=== PATIENT | female | born 1985 | race Caucasian/White ===

== ENCOUNTER 2019-10-23 15:34 | Emergency (ER) | payer OTHER, SELFPAY ==
[2019-10-23 15:45] VITALS: BP 117/53; PULSE 101; RESP 20; TEMP 36.5; O2SAT 100
--- NOTE | 2019-10-23 16:24 | ED.URI ---
HPI - URI/Sore Throat General Chief Complaint: Upper Respiratory Infection Stated Complaint: fever/achy/cough Time Seen by Provider: 10/23/19 16:20 Source: patient Mode of arrival: ambulatory Limitations: no limitations History of Present Illness HPI Narrative: Angela French is a 34 yo female with no PMH who comes here with a fever, tachycardia, myalgia, loss of appetite, month suddenly and started yesterday Related Data Allergies Allergy/AdvReac Type Severity Reaction Status Date / Time amoxicillin Allergy Severe THROAT Unverified 04/11/15 09:46 SWELLING, HIVES Review of Systems Review of Systems: Narrative: CONSTITUTIONAL: Denies fever, chills, sweats. EYES: Denies visual changes, redness, discharge. ENT: Has rhinorrhea, congestion, sore throat, no otalgia. CARDIOVASCULAR: Denies chest pain, palpitations, edema. RESPIRATORY: Denies dyspnea, wheezing, has cough GASTROINTESTINAL: Denies abdominal pain, nausea, vomiting, diarrhea. GENITOURINARY: Denies dysuria, hematuria, abnormal discharge SKIN: Denies rash or itching. NEUROLOGIC: Denies numbness, or focal weakness. PSYCHIATRIC: Denies anxiety or depression. [facility] Family History Family History Other Diabetes mellitus Social History Social History (Updated 10/23/19 @ 16:28 by Bethanie Virgen CNP) Smoking packs per day: 0.5 Smoking cigarettes per day: 10.0 Smoking status: Current every day smoker Tobacco type: cigarettes Alcohol intake: never Comments At time of signature, I agree with nursing past medical, surgical, social and family history. There is no relevant family history pertinent to the presenting complaint. Exam Narrative: Exam Narrative: GENERAL: This is a well-nourished, well-developed patient, in mild distress. HEAD: normocephalic, atraumatic. EYES: Sclera clear/white. Vision is grossly intact. EARS: External ears normal, auditory canals clear and without drainage, TMs normal without perforation. Hearing grossly intact. NOSE: External nose normal with nasal discharge, nares with redness, rhinorrhea. THROAT: Mucous membranes moist, posterior pharynx erythema with edema NECK: Neck supple, non-tender CARDIOVASCULAR: Tachycardic rate and rhythm without murmurs, gallops, or rubs. RESPIRATORY: Clear to auscultation. Breath sounds equal bilaterally. No wheezes, rales, or rhonchi. GASTROINTESTINAL: Abdomen soft, non-tender, SKIN: warm, intact with no suspicious lesions or rash, good texture and turgor. NEURO: awake, alert, and oriented to person, place and time. There were no obvious focal neurologic abnormalities. Steady gait. BACK: Nontender without deformity or crepitance. Course Course Emergency Course: Flu negative Started empirically on Tamiflu, prednisone and cough medicine Infection control precautions Vital Signs Vital signs: Vital Signs Temperature 97.7 F 10/23/19 15:45 Pulse Rate 101 H 10/23/19 15:45 Respiratory Rate 20 10/23/19 15:45 Blood Pressure 117/53 L 10/23/19 15:45 Pulse Oximetry 100 10/23/19 15:45 Temperature 97.7 F 10/23/19 15:45 Pulse Rate 101 H 10/23/19 15:45 Respiratory Rate 20 10/23/19 15:45 Blood Pressure 117/53 L 10/23/19 15:45 Pulse Oximetry 100 10/23/19 15:45 MDM - URI/Sore Throat Differential Diagnosis Differential diagnosis: Likely upper respiratory infection, viral infection, influenza and pharyngitis Lab Data Labs: Influenza A Screen Negative Reference Range: Negative Influenza B Screen Negative Reference Range: Negative Discharge Plan Discharge Clinical Impression: Influenza Upper respiratory infection Qualifiers: URI type: unspecified URI Qualified Code(s): J06.9 - Acute upper respiratory infection, unspecified Patient Disposition: Home, Self-Care Condition: Stable Instructions: Influenza (DC), Upper Respiratory Infection
== END 2019-10-23 16:38 | disposition home or self-care (01) ==
PROVIDERS: Emergency Provider Nurse Practitioner
DX: J11.1 Influenza due to unidentified influenza virus with other respiratory manifestations (principal); J06.9 Acute upper respiratory infection, unspecified; F17.210 Nicotine dependence, cigarettes, uncomplicated
CPT/HCPCS: 87804; 99213; G0463

== ENCOUNTER 2021-05-01 19:00 | Emergency (ER) | payer OTHER, SELFPAY ==
[2021-05-01 19:09] VITALS: BP 117/62; PULSE 72; RESP 18; TEMP 36.7; O2SAT 100
--- NOTE | 2021-05-01 19:11 | ED.EAR ---
HPI - Ear Problem General Chief complaint: Ear Stated complaint: Possible Ear infection Time Seen by Provider: 05/01/21 19:11 Source: patient and RN notes reviewed History of Present Illness HPI Narrative: Patient is a 36-year-old female who presents the urgent care with complaints of left ear pain. Patient states that it started 2 days ago and she has been taking ibuprofen for the pain. Patient denies of any other upper respiratory complaints. Denies of fever, chills, nausea, vomiting. No other acute complaints. No acute distress noted. Patient aware of the plan of care. Some parts of this dictation were generated by voice recognition software and may contain typographical and/or grammatical inaccuracies. Related Data Home Medications Medication Instructions Recorded Confirmed escitalopram oxalate 10 mg PO DAILY 05/01/21 05/01/21 Allergies Allergy/AdvReac Type Severity Reaction Status Date / Time amoxicillin Allergy Severe THROAT Unverified 04/11/15 09:46 SWELLING, HIVES Review of Systems Review of Systems: CONSTITUTIONAL: Denies fever, chills, or sweats. EYES: Denies visual changes, redness, or discharge. ENT: Denies rhinorrhea, congestion, sore throat. Reports of left otalgia CARDIOVASCULAR: Denies chest pain, palpitations, or edema. RESPIRATORY: Denies cough or dyspnea. GASTROINTESTINAL: Denies abdominal pain, nausea, vomiting, or diarrhea. GENITOURINARY: Denies dysuria or hematuria. SKIN: Denies rash or itching. MUSCULOSKELETAL: Denies back pain, joint pain, or myalgia. NEUROLOGIC: Denies headache, numbness, or weakness. All other systems reviewed are negative, except as documented in HPI. [facility] Family History Family History Other Diabetes mellitus Social History Social History (Updated 10/23/19 @ 16:28 by Bethanie Virgen CNP) Smoking packs per day: 0.5 Smoking cigarettes per day: 10.0 Smoking status: Current every day smoker Tobacco type: cigarettes Alcohol intake: never Comments At the time of my signature, I reviewed and agree with the nursing past medical, surgical, social, and family history. There is no relevant family history pertinent to the patient complaint. Exam Narrative: GENERAL: This is a well-nourished, well-developed patient, in no apparent distress. HEAD: normocephalic, atraumatic. EYES: PERRL. Sclera clear/white. Vision is grossly intact. EARS: External ears normal, auditory canals clear and without drainage, mild fluid noted behind bilateral TMs without otitis, TMs normal without perforation. Hearing grossly intact. NOSE: External nose normal with no obvious nasal discharge, nares without redness, no rhinorrhea. THROAT: Mucous membranes moist, posterior pharynx clear. NECK: Neck supple CARDIOVASCULAR: Regular rate and rhythm without murmurs, gallops, or rubs. RESPIRATORY: Clear to auscultation. Breath sounds equal bilaterally. No wheezes, rales, or rhonchi. SKIN: warm, intact with no suspicious lesions or rash, good texture and turgor. NEURO: awake, alert, and oriented to person, place and time. There were no obvious focal neurologic abnormalities. EXTREMITIES: No clubbing, cyanosis, or edema. Course Vital Signs Vital signs: Vital Signs Temperature 98.1 F 05/01/21 19:09 Pulse Rate 72 05/01/21 19:09 Respiratory Rate 18 05/01/21 19:09 Blood Pressure 117/62 05/01/21 19:09 Pulse Oximetry 100 05/01/21 19:09 Temperature 98.1 F 05/01/21 19:09 Pulse Rate 72 05/01/21 19:09 Respiratory Rate 18 05/01/21 19:09 Blood Pressure 117/62 05/01/21 19:09 Pulse Oximetry 100 05/01/21 19:09 Reviewed Medical Decision Making MDM Narrative Medical decision making narrative: Advised the patient to use an [id number] antihistamine such as Benadryl/Claritin/Zyrtec in conjunction with Flonase nasal spray. Use a warm compress to the ear as needed for discomfort. Continue Tyleno
== END 2021-05-01 19:32 | disposition home or self-care (01) ==
PROVIDERS: Emergency Provider Nurse Practitioner Family; PCP Internal Medicine
DX: H92.02 Otalgia, left ear (principal); F17.210 Nicotine dependence, cigarettes, uncomplicated
CPT/HCPCS: 99213; G0463

== ENCOUNTER 2023-08-10 08:12 | Emergency (ER) | payer OTHER, SELFPAY ==
[2023-08-10 08:23] VITALS: BP 93/64; PULSE 78; RESP 16; TEMP 36.8; O2SAT 98
--- NOTE | 2023-08-10 08:47 | ED.BACK ---
HPI - Back Pain/Injury General Chief Complaint: Back Pain/Injury Stated Complaint: Back Injury Time Seen by Provider: 08/10/23 08:47 Source: patient, RN notes reviewed and old records reviewed Mode of arrival: ambulatory Limitations: no limitations History of Present Illness HPI Narrative: 38 year old female who presents to [facility] care with complaints of left lower back pain since Saturday PM after lifting weights at gym. Patient reports that she has taken Ibuprofen and has used ice and heat and also Biofreeze ointment to her left lower back. Patient reports no radiation of pain into her legs or any tingling or numbness of lower extremities. Patient reports no difficulty with bowels or bladder or any saddle paraesthesia. Patient is breast feeding. MD elicited complaint: back pain Pertinent past history: prior back pain Onset (ago): day(s) (4) Severity: moderate Quality: sharp and aching Treatments prior to arrival: cold therapy, heat therapy, NSAIDS and other (topical BIOfreeze) Related Data Home Medications Medication Instructions Recorded Confirmed escitalopram oxalate 10 mg tablet 10 mg PO DAILY 05/01/21 08/10/23 Allergies Allergy/AdvReac Type Severity Reaction Status Date / Time amoxicillin Allergy Severe THROAT Verified 08/10/23 08:43 SWELLING, HIVES Review of Systems Review of Systems: CONSTITUTIONAL: Denies fever, chills, or sweats. CARDIOVASCULAR: Denies chest pain, palpitations, or edema. RESPIRATORY: Denies cough or dyspnea. GASTROINTESTINAL: Denies abdominal pain, nausea, vomiting, or diarrhea. GENITOURINARY: Denies dysuria or hematuria. SKIN: Denies rash or itching. MUSCULOSKELETAL: Reports left lower back pain. or myalgia. NEUROLOGIC: Denies headache, numbness, or weakness. All systems reviewed & are unremarkable except as noted in HPI and below PMFSH Surgical History Surgical History (Updated 08/10/23 @ 09:06 by Xena Dumont NP) Hx of cholecystectomy Previous section x2 Family History Family History Other Diabetes mellitus Social History Social History (Updated 08/10/23 @ 09:07 by Xena Dumont NP) Smoking packs per day: 0.5 Smoking cigarettes per day: 10.0 Smoking status: Former smoker Tobacco type: cigarettes Additional smoking assessment comments: quit 03/2022 Alcohol intake: never Substance use type: does not use Living arrangements: with family Gender identity (if verbalized by the patient): Female Comments At time of signature, agree with nursing past medical, surgical, social and family history. There is no relevant family history pertinent to the presenting complaint Exam Narrative: GENERAL: Well-appearing, well-nourished, and in no acute distress. HEAD: Normocephalic, atraumatic. EYES: PERRLA and EOMI. NECK: Supple. No lymphadenopathy. CHEST: Clear to auscultation. No respiratory distress. SAO2 98% on room air HEART: Regular rate and rhythm. Distal pulses palpable and equal, cap refill <3 seconds ABDOMEN: Soft, nontender, nondistended, normal active bowel sounds, no palpable or pulsatile masses. No CVA tenderness MUSCULOSKELETAL: Normal range of motion and strength in all extremities; 5/5 strength with hip flexion and extension, dorsiflexion and extension, knee flexion and extension, plantar flexion and extension. Normal sensation in dermatomal distributions with sensitivity to light touch and pain. No midline back tenderness to palpation. No paraspinal tenderness. Transfers from lying to sitting to standing. pain over left SI region with no radiation SKIN: Warm, dry, no rash. No ecchymosis, erythema, open wounds to back. NEURO: No focal deficits. Alert and oriented x3. Reflexes intact. Normal gait. PSYCH: Normal mood and affect Course Course Emergency Course: Patient is aware of diagnosis, understands and agrees to treatment plan. Anticipa
== END 2023-08-10 09:05 | disposition home or self-care (01) ==
PROVIDERS: Emergency Provider Registered Nurse; PCP Internal Medicine
DX: M54.50 Low back pain, unspecified (principal); Z87.891 Personal history of nicotine dependence
CPT/HCPCS: 99213; G0463

== ENCOUNTER 2023-12-19 08:56 | Emergency (ER) | payer OTHER, SELFPAY ==
[2023-12-19 09:14] VITALS: BP 97/58; PULSE 70; RESP 14; TEMP 36.9; O2SAT 100
--- NOTE | 2023-12-19 09:46 | ED.GENADULT ---
HPI - General Adult General Chief complaint: Upper Respiratory Infection Stated complaint: Congestion/Ear Pain/Sore Throat Time Seen by Provider: 12/19/23 09:34 Source: patient, RN notes reviewed and old records reviewed Mode of arrival: ambulatory Limitations: no limitations History of Present Illness HPI narrative: 38-year-old female to [facility] Care for complaint sore throat, right ear pain and congestion for 2 days. Patient denies fever, nausea, cough, vomiting, bowel or bladder changes, chest pain, shortness of breath. Patient endorses allergy to amoxicillin. Patient able to tolerate fluids by mouth. Related Data Home Medications Medication Instructions Recorded Confirmed escitalopram oxalate 10 mg tablet 10 mg PO DAILY 05/01/21 12/19/23 Allergies Allergy/AdvReac Type Severity Reaction Status Date / Time amoxicillin Allergy Severe THROAT Verified 12/19/23 09:40 SWELLING, HIVES Review of Systems Review of Systems: All systems reviewed & are unremarkable except as noted in HPI and below Constitutional: Constitutional: Reports as per HPI, Denies fatigue, Denies fever(s), Denies headache(s) and Denies poor appetite Eyes: Eyes: Reports no additional eye complaints ENT: Reports as per HPI, Reports otalgia ( Right), Reports nasal congestion and Reports sore throat Cardiovascular: Cardiovascular: Reports no additional cardiovascular complaints, Denies chest pain and Denies dyspnea Respiratory: Respiratory: Reports no additional respiratory complaints, Denies cough and Denies dyspnea Musculoskeletal: Musculoskeletal: Reports no additional musculoskeletal complaints Neurologic: Reports system reviewed and no additional complaints, except as documented Psychiatric: Psychiatric: Reports no additional psychiatric complaints PMFSH Surgical History Surgical History Hx of cholecystectomy Previous section x2 Family History Family History Other Diabetes mellitus Social History Social History Smoking packs per day: 0.5 Smoking cigarettes per day: 10.0 Smoking status: Former smoker Tobacco type: cigarettes Additional smoking assessment comments: quit 03/2022 Alcohol intake: never Substance use type: does not use Living arrangements: with family Gender identity (if verbalized by the patient): Female Comments At the time of my signature, I reviewed and agree with the nursing past medical, surgical, social, and family history. There is no relevant family history pertinent to the patient complaint. Exam Const: General: cooperative, healthy appearing, comfortable, no acute distress, alert and well nourished Nutritional Appearance: well nourished Orientation/consciousness: patient oriented x3 Limitations: no limitations HENMT: Head: normal to inspection Ears: external ears normal and TM abnormal erythematous on the right and with fluid behind the TM on the right Face/Nose/Sinus: Normal external nose present, Normal nares present, normal facial exam, No erythema and No edema Face and sinus: normal facial exam, no erythema and no edema Mouth: Yes Normal oral and palatal mucosa present Throat: posterior oropharynx abnormal erythema and postnasal drainage Eyes: General: appearance normal, both eyes and all related structures Neck: Neck: normal visual inspection, full ROM and no meningeal signs Lymphatic: no lymphadenopathy noted and no lymphedema noted Chest: Chest palpation & inspection: normal inspection of the chest Resp: Effort & Inspection: normal respiratory effort and able to speak in complete sentences Auscultation: clear to auscultation bilaterally Cardio: Jugular venous distension: no JVD Rate: regular rate Rhythm: regular rhythm Back/Spine/Pelvis: Cervical Spine: cervical ROM no
== END 2023-12-19 09:58 | disposition home or self-care (01) ==
PROVIDERS: Emergency Provider Nurse Practitioner Family; PCP Internal Medicine
DX: H66.91 Otitis media, unspecified, right ear (principal); Z87.891 Personal history of nicotine dependence
CPT/HCPCS: 99213; G0463

== ENCOUNTER 2024-06-15 16:13 | Emergency (ER) | payer OTHER, SELFPAY ==
[2024-06-15 16:34] VITALS: BP 110/65; PULSE 98; RESP 20; TEMP 37; O2SAT 100
--- NOTE | 2024-06-15 17:35 | ED_ITS ---
HPI - URI/Sore Throat General Chief Complaint: Upper Respiratory Infection Stated Complaint: Cough Time Seen by Provider: 06/15/24 16:20 Source: patient, RN notes reviewed and old records reviewed Mode of arrival: ambulatory Limitations: no limitations History of Present Illness MD elicited complaint: cough and sore throat Related Data Home Medications Medication Instructions Recorded Confirmed escitalopram oxalate 10 mg tablet 10 mg PO DAILY 05/01/21 06/15/24 Allergies Allergy/AdvReac Type Severity Reaction Status Date / Time amoxicillin Allergy Severe THROAT Verified 06/15/24 17:24 SWELLING, HIVES Review of Systems Review of Systems: CONSTITUTIONAL: Denies malaise, chills, sweats, or fever. EYES: Denies visual changes, redness, or discharge. ENT: Reports rhinorrhea, congestion, sinus pain, otalgia and sore throat. CARDIOVASCULAR: Denies chest pain, palpitations, or edema. RESPIRATORY: Reports cough.? Denies dyspnea. GASTROINTESTINAL: Denies abdominal pain, nausea, vomiting, diarrhea SKIN: Denies rash or itching. MUSCULOSKELETAL: Denies myalgia. NEUROLOGIC: Denies headache. All systems reviewed & are unremarkable except as noted in HPI and below PMFSH Surgical History Surgical History Hx of cholecystectomy Previous section x2 Family History Family History Other Diabetes mellitus Social History Social History Smoking packs per day: 0.5 Smoking cigarettes per day: 10.0 Smoking status: Former smoker Tobacco type: cigarettes Additional smoking assessment comments: quit 03/2022 Alcohol intake: never Substance use type: does not use Living arrangements: with family Gender identity (if verbalized by the patient): Female Comments At time of signature, agree with nursing past medical, surgical, social and family history. There is no relevant family history pertinent to the presenting complaint Exam Narrative: GENERAL: Well-appearing, well-nourished, and in no acute distress. HEAD: Normocephalic EYES: PERRLA, conjunctivae clear ENT: Nares clear, turbinates edematous and erythematous, clear discharge. Mucous membranes moist. TM pearly dickerson with dull light reflex bilaterally; no tragal tenderness. Oropharynx erythematous without lesions. Tonsils not enlarged and without exudate, no drooling, no hoarseness, no trismus, uvula midline. NECK: Supple. No lymphadenopathy CHEST: Clear to auscultation, breath sounds equal. No wheezing, rhonchi, rales, or stridor. No respiratory distress, speaks in full sentences. HEART: Regular rate and rhythm. No murmur heard. SKIN: Warm, dry, no rash. NEURO: Alert and oriented x3. PSYCH: Normal mood and affect Course Course Emergency Course: Patient is aware of diagnosis, understands and agrees to treatment plan.? Anticipatory guidance given.? Patient agrees to follow-up as directed and is aware of reasons to seek care at the emergency department. Portions of this record may have been created with voice recognition software Level of Care: Express Care Visit Vital Signs Vital signs: Vital Signs Temperature 37.0 C 06/15/24 16:34 Pulse Rate 98 06/15/24 16:34 Respiratory Rate 20 06/15/24 16:34 Blood Pressure 110/65 06/15/24 16:34 Pulse Oximetry 100 06/15/24 16:34 Oxygen Delivery Room Air 06/15/24 16:34 Temperature 37.0 C 06/15/24 16:34 Pulse Rate 98 06/15/24 16:34 Respiratory Rate 20 06/15/24 16:34 Blood Pressure 110/65 06/15/24 16:34 Pulse Oximetry 100 06/15/24 16:34 Oxygen Delivery Room Air 06/15/24 16:34 Reviewed MDM - URI/Sore Throat MDM Narrative Medical decision making narrative: Differential diagnosis considered: Mason virus, strep pharyngitis, allergic rhinitis, upper respiratory tract infection, sinusitis, rhinosinusitis, nasopharyngitis. viral pharyngitis, otitis media, otitis externa, pneumonia, bro nchitis, viral cough syndrome, viral syndrome, and influenza.? Exam findings show no acute concerns or changes; patient is non-toxic appearing and is in no distress.? Patient is appropriate for outpatient treatment and follow-up. Lab Data Attestation: I reviewed the patient's lab results. Discharge Plan Discharge Clinical Impression: Left otitis media Qualifiers: Otitis media type: unspecified Qualified Code(s): H66.92 - Otitis media, unspecified, left ear Cough Qualifiers: Cough type: acute Qualified Code(s): R05.1 - Acute cough Patient Disposition: Home, Self-Care Condition: Stable Instructions: Antibiotic Form, Ear Infection (GEN) Additional Instructions: Increase fluids especially juices and water [id number] cough and cold medicine of your choice for your symptoms Prescription cough medicine as directed--caution drowsiness and no driving or alcohol Cough tablets as directed for cough--do not bite, chew or suck on--swallow whole Tylenol or ibuprofen for any fever pain Zyrtec Claritin or Karma daily heat to the face 20-30 minutes 4-6 times a day for pain Salt water gargles, throat lozenges or throat sprays as desired Antibiotic as directed--finished the medication Prescriptions: New azithromycin 250 mg tablet See Rx Instructions .ROUTE .COMPLEX Qty: 6 0RF Rx Instructions: For 250 mg dose pack: take 500 mg today (day 1), then 250 mg for 4 days (days 2-5) benzonatate 200 mg capsule 200 mg PO TID PRN (Reason: cough) Qty: 20 0RF No Action escitalopram oxalate 10 mg tablet 10 mg PO DAILY Follow-up/Referrals: Piyush,Sukhdeep Leach MD [Primary Care Provider] - Time of Disposition: 17:43 Quality [place] Coma Scale Eyes: Open Verbal: Oriented and Alert Motor: Follows Commands Sandrita Coma Total Score: 15
== END 2024-06-15 17:45 | disposition home or self-care (01) ==
PROVIDERS: Emergency Provider Registered Nurse; PCP Internal Medicine
DX: H66.92 Otitis media, unspecified, left ear (principal); R05.1 Acute cough; Z87.891 Personal history of nicotine dependence
CPT/HCPCS: 99213; G0463

== ENCOUNTER 2025-04-28 08:35 | Emergency (ER) | payer OTHER, SELFPAY ==
[2025-04-28 08:41] VITALS: BP 104/61; PULSE 77; RESP 16; TEMP 36.6; O2SAT 100
--- NOTE | 2025-04-28 08:44 | ED_ITS ---
HPI - Female Genitourinary General Chief complaint: Urogenital-Female Stated complaint: Urinary Problem Time Seen by Provider: 04/28/25 08:45 Source: patient and RN notes reviewed Mode of arrival: ambulatory Limitations: no limitations History of Present Illness HPI Narrative: 40 y/o female presented for c/o burning with urination, frequency and blood in urine. Onset this morning. Took AZO. Denies nausea, vomiting, abdominal pain, flank pain, constipation, diarrhea, fevers or chills. Related Data Home Medications ?Medication ?Instructions ?Recorded ?Confirmed ?Last Taken ?Type escitalopram oxalate 10 mg tablet 10 mg PO DAILY 05/0106/15/24 Unknown History Allergies Allergy/AdvReac Type Severity Reaction Status Date / Time amoxicillin Allergy Severe THROAT Verified 04/28/25 08:40 SWELLING, HIVES Review of Systems Review of Systems: CONSTITUTIONAL: Denies body aches, fever, chills, or sweats. CARDIOVASCULAR: Denies chest pain, palpitations, or edema. RESPIRATORY: Denies cough or dyspnea. GASTROINTESTINAL: Denies abdominal pain, nausea, vomiting, or diarrhea. GENITOURINARY: Reports dysuria, frequency, hematuria, denies flank pain, discharge SKIN: Denies rash, itching, or wounds. MUSCULOSKELETAL: Denies back pain or myalgia. [facility] Past Medical History Medical History Anxiety Surgical History Surgical History Hx of cholecystectomy Previous section x2 Family History Family History Other Diabetes mellitus Social History Social History Smoking packs per day: 0.5 Smoking cigarettes per day: 10.0 Smoking status: Former smoker Tobacco type: cigarettes Additional smoking assessment comments: quit 03/2022 Alcohol intake: never Substance use type: does not use Living arrangements: with family Gender identity (if verbalized by the patient): Female Comments At time of signature, I have reviewed and agree with nursing past medical, surgical, social and family history unless otherwise noted. Please see nursing chart for further information. There is no relevant family history pertinent to the presenting complaint Exam Narrative: GENERAL: Well-appearing ENT: Mucous membranes pink and moist. CHEST: No respiratory distress. Clear to auscultation. HEART: Regular rate and rhythm. ABDOMEN: Soft, nontender, nondistended, normal active bowel sounds. No CVA tenderness SKIN: Warm, dry, no rash. NEURO: No focal deficits. Alert and oriented x3. Gait steady. PSYCH: Normal affect. Course Course Emergency Course: Patient is aware of diagnosis, understands and agrees to treatment plan. Anticipatory guidance given. Patient agrees to follow-up as directed and is aware of reasons to seek care at the emergency department. Portions of this record may have been created with voice recognition software Level of Care: Express Care Visit Vital Signs Vital signs: Vital Signs Temperature 97.8 F 04/28/25 08:41 Pulse Rate 77 04/28/25 08:41 Respiratory Rate 16 04/28/25 08:41 Blood Pressure 104/61 04/28/25 08:41 Pulse Oximetry 100 04/28/25 08:41 Oxygen Delivery Room Air 04/28/25 08:41 Temperature 97.8 F 04/28/25 08:41 Pulse Rate 77 04/28/25 08:41 Respiratory Rate 16 04/28/25 08:41 Blood Pressure 104/61 04/28/25 08:41 Pulse Oximetry 100 04/28/25 08:41 Oxygen Delivery Room Air 04/28/25 08:41 Reviewed MDM - Female Genitourinary MDM Narrative Medical decision making narrative: Discussed physical exam findings. Unable to dip urine after taking AZO, will culture. Shared decision making pt elects treatment starting today, and is aware we may contact her to change the abx based on the culture. Advised supportive measures and signs/symptoms to go to the ER. Pt is appropriate for outpt treatment and f/u. Differential Diagnosis Differential diagnosis: Likely urinary tract infection, vaginitis and cystitis Discharge Plan Discharge Clinical Impression: Dysuria Patient Disposition: Home Condition: Stable Instructions: Antibiotic Form, Urinary Tract Infection in Women (ED) Additional Instructions: Take the antibiotic as prescribed The urine will be sent of for a culture to identify what type of bacteria is causing your infection. If the culture shows that the antibiotic will not get rid of your infection, you will be notified and a new antibiotic will be called in for you. Increase water intake you will need to follow up with your PCP, call to schedule an appointment. Go to the ER for any worsening symptoms or concerns Patient Language: Estonian Prescriptions: New nitrofurantoin monohyd/m-cryst [Macrobid] 100 mg capsule 100 mg PO Q12H 5 Days Qty: 10 0RF Rx Instructions: must administer with a meal/food No Action escitalopram oxalate 10 mg tablet 10 mg PO DAILY Follow-up/Referrals: Piyush,Sukhdeep Leach MD [Primary Care Provider] Time of Disposition: 09:00
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
--- OUTSIDE RECORDS SUMMARY | 2025-04-28 09:02 | XMS_ITS | Clinical Summary ---
Author Organization [facility] Address [address] [place] [address] Phone Care Team Providers Care Inspector Semiconductor Wafer Name Role Phone Brent Harrisdanny Montaguegh SEMICONDUCTORS WAFER BREAKER, PLASTERER SPOT Unavailable Jeovany Pickett MD Primary Care Provider [phone] Allergies Active Allergy Reactions Criticality Noted Date Comments Amoxicillin Hives,Swelling 07/24/2016 Medications Vit-Fe Fumarate-FA ( VITAMIN) Chewable Tablet Take 1 Tab by mouth nightly. Active Social History Tobacco Use Types Packs/Day Years Used Date Smoking Tobacco: Never Tobacco Cessation:Counseling Given: Not Answered Alcohol Use Standard Drinks/Week Comments No 0 (1 standard drink = 0.6 oz pur e alcohol) Comments Unknown Sex and Gender Information Value Date Recorded Sex Assigned at Not on file Legal Sex Female 9:19 PM CDT Gender Identity Not on file Sexual Orientation Not on file Last Filed Vital Signs Vital Sign Reading Time Taken Comments Blood Pressure 118/67 12/08/2023 2:45 AM CDT Pulse 109 12/08/2023 2:45 AM CDT Temperature 37.3 C (99.1 F) 12/08/2023 2:45 AM CDT Respiratory Rate 16 12/08/2023 2:45 AM CDT Oxygen Saturation 97% 12/08/2023 2:45 AM CDT Inhaled Oxygen Concentration - - Weight 61.2 kg (135 lb) 12/08/2023 12:10 AM CDT Height 167.6 cm (5' 6) 12/08/2023 12:10 AM CDT Body Mass Index 21.79 12/08/2023 12:10 AM CDT Plan of Treatment Health Maintenance Due Date Last Done Comments Hepatitis C Virus (HCV) Screening 1984 Mammogram 1984 Pap Smear 02/09/2005 Human Papillomavirus (HPV) Immunization (1 - 3-dose SCDM series) 02/09/2011 Cervical Cancer Screening (CCS) 02/09/2014 HPV/Cotest 02/09/2014 Discussion re Starting/Frequency of Mammograms 2024 Influenza Immunization (#1) 2025 09/18/2023 SARS-COV-2 Immunization ( season) 2025 Respiratory Syncytial Virus (RSV) Immunization (Adult) (1 - 1-dose 75+ series) 02/09/2059 Meningococcal Immunization (ACWY) Aged Out 02/12/2005 No longer eligible based on patient's age to complete this topic Hepatitis B Immunization Completed 006, 04/05/2005, 04/05/2005, Additional history exists DTaP/Tdap/Td Immunization Discontinued 2022, 02/12/2005, 08/19/2004 TdaP Immunization Completed 02/20/2023, 08/19/2004 Pneumococcal Immunization Combined Aged Out No longer eligible based on patient's age to complete this topic Rotavirus Immunization Aged Out No lo nger eligible based on patient's age to complete this topic [place] [address] [place] [address] [employer] Care Teams Inspector Semiconductor Wafer Relationship Specialty Start Date End Date Jeovany Pickett MD [address] [place] [id number] PCP - General Internal Medicine 12/08/23 Halle Harris, SEMICONDUCTORS WAFER BREAKER, PLASTERER SPOT [address] [place] [address] Advanced Practice Nurse 01/09/22
== END 2025-04-28 09:11 | disposition home or self-care (01) ==
PROVIDERS: Emergency Provider Nurse Practitioner Family; PCP Internal Medicine
DX: R30.0 Dysuria (principal); F41.9 Anxiety disorder, unspecified; Z87.891 Personal history of nicotine dependence
CPT/HCPCS: 87077; 87086; 87186; 99213; G0463